=== PATIENT | female | born 1965 | race Caucasian/White ===

== ENCOUNTER 2017-08-12 16:20 | Emergency (ER) | payer OTHER ==
--- NOTE | 2017-08-12 17:35 | ER ---
Nurse's Notes [facility] Name: Linda Skelton Age: 52 yrs Sex: Female : 1965 Arrival Date: 08/12/2017 Time: 16:23 Bed 15 Private MD: Mark Fuller V Diagnosis: Attacked by rooster, puncture wound. Presentation: 08/12 16:35 Presenting complaint: Patient states: I went to my patients house and when I was la1 leaving his rooster attacked me and pecked my left ankle twice breaking the skin. Transition of care: patient was not received from another setting of care. Onset of symptoms was August 12, 2017. Initial Sepsis Screen: Does the patient meet any 2 criteria? No. Patient's initial sepsis screen is negative. Does the patient have a suspected source of infection? No. Patient initial sepsis screen negative. Care prior to arrival: None. 16:35 Method Of Arrival: Ambulatory la1 16:35 Acuity: CHITRA 4 la1 Historical: - Allergies: 16:36 No Known Allergies; la1 - PMHx: 16:36 Seizures; la1 - Immunization history:: Adult Immunizations up to date. - Social history:: Smoking status: Patient/guardian denies using tobacco. Screenin:59 Abuse screen: Denies threats or abuse. Denies injuries from another. Nutritional ph screening: No deficits noted. Tuberculosis screening: No symptoms or risk factors identified. Fall Risk None identified. Assessment: 16:53 General: Appears in no apparent distress. uncomfortable, well groomed, Behavior is ph calm, cooperative, appropriate for age, Reports states, " I was at a pt's house and their rooster attacked me.". Pain: Complains of pain in right ankle and medial aspect of right calf. Neuro: Level of Consciousness is awake, alert, obeys commands, Oriented to person, place, time, situation. Cardiovascular: Capillary refill < 3 seconds Patient's skin is warm and dry. Respiratory: Airway is patent Respiratory effort is even, unlabored, Respiratory pattern is regular, symmetrical. Derm: Skin is healthy with good turgor, Skin is pink, warm \\T\\ dry. Musculoskeletal: Circulation, motion, and sensation intact. Range of motion: intact in all extremities. Injury Description: Bite sustained to right ankle and medial aspect of right calf caused by rooster is superficial, from animal, small puncture noted to R outer ankle and R inner calve. 18:41 Reassessment: Patient appears in no apparent distress at this time. Patient and/or ph family updated on plan of care and expected duration. Pain level reassessed. Patient is alert, oriented x 3, equal unlabored respirations, skin warm/dry/pink. Pt discharged home with antibiotics. Vital Signs: 16:36 BP 124 / 70; Pulse 74; Resp 16; Temp 98.3; Pulse Ox 100% on R/A; Weight 99.34 kg; la1 Height 6 ft. 0 in. (182.88 cm); 17:45 BP 119 / 67; Pulse 72; Resp 18; Temp 97.9; Pulse Ox 99% on R/A; ph 16:36 Body Mass Index 29.70 (99.34 kg, 182.88 cm) la1 ED Course: 16:23 Patient arrived in ED. as 16:24 Mark Fuller MD is Private Physician. as 16:36 Triage completed. la1 16:36 Arm band placed on left wrist. la1 16:44 Nora Mcmillan, TYRESE is Primary Nurse. ph 16:46 Ok Chinchilla MD is Attending Physician. ps1 17:00 Patient has correct armband on for positive identification. Bed in low position. Call ph light in reach. Side rails up X 1. Pulse ox on. NIBP on. Warm blanket given. Pillow given. Ice pack to injury. 17:34 Mark Fuller MD is Referral Physician. ps1 18:38 No provider procedures requiring assistance completed. Patient did not have IV access ph during this emergency room visit. Wound care: to puncture located on medial aspect of right calf and right ankle was cleaned with Hibiclens, irrigated with normal saline, dressed with Neosporin, band aid, Patient tolerated well. 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 Exp: ph 11/29/2019. Lot #: [id number]. } Route: IM; Site: left deltoid; 18:38 Follow up: Response: No adverse reaction ph Outcome: 17:35 Discharge ordered by . ps1 18:42 Patient left the ED. ph 18:42 Discharged to home ambulatory. ph 18:42 Condition: good 18:42 Discharge instructions given to patient, Instructed on discharge instructions, follow up and referral plans. medication usage, Demonstrated understanding of instructions, follow-up care, medications, Prescriptions given X 1. Signatures: Melinda Solomon Lee RN RN la1 Nora Mcmillan RN RN ph Ok Chinchilla MD MD ps1
--- NOTE | 2017-08-12 17:35 | EDPHYS ---
Physician Documentation [facility] Name: Linda Skelton Age: 52 yrs Sex: Female : 1965 Arrival Date: 08/12/2017 Time: 16:23 Bed 15 Private MD: Mark Fuller V ED Physician Ok Chinchilla HPI: 08/12 17:25 This 52 yrs old Female presents to ER via Ambulatory with complaints of Ankle ps1 Injury, Leg Pain. 17:25 The patient presents with an injury. The complaints affect the right ankle. Onset: The ps1 symptoms/episode began/occurred just prior to arrival. 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 Describes the rooster about 2 and 1/2 feet tall and has a sharp beak. Unsure of the type of rooster but concerned because it pecks its beak in the dirt. She was running from the rooster and it pecked her twice in the leg in which she sustained 2 superficial puncture wounds. She is upset about the situation. 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 . Associated signs and symptoms: Pertinent negatives: fever, numbness, tingling. Historical: - Allergies: 16:36 No Known Allergies; la1 - PMHx: 16:36 Seizures; la1 - Immunization history:: Adult Immunizations up to date. - Social history:: Smoking status: Patient/guardian denies using tobacco. ROS: 17:25 Constitutional: Negative for fever, chills, and weight loss, Eyes: Negative for injury, ps1 pain, redness, and discharge, Cardiovascular: Negative for chest pain, palpitations, and edema, Respiratory: Negative for shortness of breath, cough, wheezing, and pleuritic chest pain, Abdomen/GI: Negative for abdominal pain, nausea, vomiting, diarrhea, and constipation. 17:25 Psych: Negative for depression, anxiety, suicide ideation, homicidal ideation, and hallucinations. 17:25 MS/extremity: Positive for puncture. Exam: 17:25 Constitutional: This is a well developed, well nourished patient who is awake, alert, ps1 and in no acute distress. Head/Face: Normocephalic, atraumatic. Chest/axilla: Normal chest wall appearance and motion. Nontender with no deformity. No lesions are appreciated. Cardiovascular: Regular rate and rhythm. No gallops, murmurs, or rubs. Normal PMI, no JVD. No pulse deficits. Respiratory: Lungs have equal breath sounds bilaterally, clear to auscultation and percussion. No rales, rhonchi or wheezes noted. No increased work of breathing, no retractions or nasal flaring. 17:25 Skin: Appearance: normal except for affected area, injury, puncture(s), that are superficial, of the right leg and medial aspect of right calf. Vital Signs: 16:36 BP 124 / 70; Pulse 74; Resp 16; Temp 98.3; Pulse Ox 100% on R/A; Weight 99.34 kg; la1 Height 6 ft. 0 in. (182.88 cm); 17:45 BP 119 / 67; Pulse 72; Resp 18; Temp 97.9; Pulse Ox 99% on R/A; ph 16:36 Body Mass Index 29.70 (99.34 kg, 182.88 cm) la1 MDM: 17:25 Data reviewed: vital signs, nurses notes. ED course: Patient became upset because the [facility] staff and myself found the story as described funny. I apologized and asked Dr. Padilla to see the patient to remain objective. POC: Update Tetanus. Home with Keflex prophylaxis. . 17:35 Patient medically screened. 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 Exp: ph 11/29/2019. Lot #: [id number]. } Route: IM; Site: left deltoid; 18:38 Follow up: Response: No adverse reaction ph Disposition: 08/12/17 17:35 Discharged to Home. Impression: Attacked by fernanda, puncture wound. . - Condition is Stable. - Discharge Instructions: Puncture Wound. - Prescriptions for Keflex 250 mg Oral Capsule - take 1 capsule by ORAL route every 8 hours for 5 days; 15 capsule. - Medication Reconciliation Form, Thank You Letter, Antibiotic Education, Prescription Opioid Use form. - Follow up: Mark Fuller MD; When: As needed; Reason: Recheck today's complaints, Continuance of care, Re-evaluation by your physician. Follow up: Emergency Department; When: As needed; Reason: Fever > 102 F, Worsening of condition. - Problem is new. - Symptoms are unchanged. Signatures: Morales Weathers, RN RN la1 Nora Mcmillan RN RN ph Ok Chinchilla MD MD ps1
[2017-08-12] MEDS ORDERED: TETANUS & DIPHTHERIA TOX,ADULT 0.5 ML VIAL ONE (18:17)
== END 2017-08-12 18:42 | disposition home or self-care (01) ==
LOC: ER 16:20
DX: S81.831A Puncture wound without foreign body, right lower leg, initial encounter (principal); W55.82XA Struck by other mammals, initial encounter; Y93.9 Activity, unspecified; Y92.89 Other specified places as the place of occurrence of the external cause; Y99.8 Other external cause status; Z23 Encounter for immunization
CPT/HCPCS: 90714; 99284

== ENCOUNTER 2017-12-26 09:55 | Emergency (ER) | payer OTHER ==
[2017-12-26] MEDS ORDERED: NA CHLORIDE 0.9% 500 ML ONE ×2 (10:07→10:15)
--- NOTE | 2017-12-26 10:41 | RAD REPORT ---
EXAM DESCRIPTION: CT - Head Brain Wo Cont - 12/26/2017 10:35 am CLINICAL HISTORY: SEIZURE Epilepsy COMPARISON: HEAD BRAIN W O CONTRAST dated 05/15/2015 TECHNIQUE: All CT scans are performed using dose optimization technique as appropriate and may inclu de automated exposure control or mA/KV adjustment according to patient size. FINDINGS: No intracranial hemorrhage, hydrocephalus or extra-axial fluid collection.Mild generalized brain atrophy is present with mild periventricular and deep white matter chronic microvascular ische darius changes.No areas of brain edema or evidence of midline shift. The paranasal sinuses and mastoids are clear. The calvarium is intact. IMPRESSION: No acute intracranial abnormality.
[2017-12-26 10:47] LABS: Absolute Lymphocytes (CBC) 1.6 K/uL (0.7-4.9); Absolute Monocytes 0.3 K/uL (0.1-1.3); Absolute Neutrophil 2.3 K/uL (1.8-8.0); BUN Blood Urea Nitrogen 11 mg/dL (7-18); Basophils % 0.5 % (0-1.3); Bicarbonate 26 mmol/L (21-32); CKMB Creatine Kinase MB < 1.0 ng/mL (0.3-3.6); Creatine Phosphokinase 81 U/L (26-192); Eosinophils % 0.7 % (0-4.4); Glucose Level 91 mg/dL (74-106); Lymphocytes % 37.8 % (15.3-44.8); MCH 33.2 pg (27.0-35.0); MCV 97.8 fL (80-100); MPV 8.4 fL (7.6-11.3); Magnesium 2.5 mg/dL (1.8-2.4); Monocytes % 6.3 % (3.3-12.3); Potassium 3.9 mmol/L (3.5-5.1); RBC Red Blood Cell Count 3.98 M/uL (3.86-4.86); Sodium Level 141 mmol/L (136-145)
--- NOTE | 2017-12-26 11:45 | RAD REPORT ---
EXAM DESCRIPTION: MRI - Brain Wo Cont - 12/26/2017 11:29 am CLINICAL HISTORY: headache, ataxia, seizure COMPARISON: No comparisons TECHNIQUE: Axial, sagittal, and coronal magnetic resonance images of the brain were obtained. Contra st was not requested FINDINGS: No significant abnormal signal is present within the brain. Hippocampal gyri are normal si ze and signal Diffusion-weighted/ADC mapping does not reveal evidence of acute infarction. The ventricles are normal caliber. An extra-axial fluid collection is not present The sinuses and mastoids are clear. IMPRESSION: No acute abnormality is displayed
--- NOTE | 2017-12-26 11:59 | ER ---
Nurse's Notes [facility] Name: Linda Skelton Age: 52 yrs Sex: Female : 1965 Arrival Date: 12/26/2017 Time: 09:59 Bed 2 Private MD: Diagnosis: Epilepsy and recurrent seizures Presentation: 12/26 09:53 Presenting complaint: EMS states: seizure noted by staff at her job, focal eye seizure sv is what was noted lasted about 7 minutes. No head injury or fall. Pt stated that she felt hot and knew a seizure was going to happen and layed down on the floor. Reports feeling "off balance and head not clear." Stated that she recently got her Topamax increased to 200 mg BID about 3 weeks ago. 09:54 Method Of Arrival: EMS: [facility] sv 09:54 Transition of care: patient was not received from another setting of care. Onset of sv symptoms was December 26, 2017. Risk Assessment: Do you want to hurt yourself or someone else? Patient reports no desire to harm self or others. Initial Sepsis Screen: Does the patient meet any 2 criteria? No. Patient's initial sepsis screen is negative. Does the patient have a suspected source of infection? No. Patient's initial sepsis screen is negative. Care prior to arrival: None. 09:54 Acuity: CHITRA 3 sv Triage Assessment: 10:00 General: Appears in no apparent distress. comfortable, well groomed, well developed, sv Behavior is calm, cooperative, appropriate for age. Pain: Denies pain. EENT: No signs and/or symptoms were reported regarding the EENT system. Neuro: Level of Consciousness is awake, alert, obeys commands, Oriented to person, place, time, situation, Moves all extremities. Full function Speech is normal, and slow. Facial symmetry appears normal, Reports "head not clear and feeling off balance.". Seizure activity reported prior to arrival. Type of seizure: focal seizure. Seizure lasted approximately 7 minutes. Respiratory: Respiratory effort is even, unlabored, Respiratory pattern is regular, symmetrical. Derm: Skin is normal. Musculoskeletal: Range of motion: intact in all extremities. Historical: - Allergies: 10:06 No Known Allergies; sv - Home Meds: 10:06 Lexapro 10 mg Oral tab 1 tab once daily [Active]; Topamax 200 mg Oral tab 1 tab 2 times sv per day [Active]; - PMHx: 10:06 Seizures; epilepsy; sv 10:19 Kidney stones; sv - PSHx: 10:19 Bladder suspension; Tonsillectomy; ; Adenoids; sv - Immunization history:: Adult Immunizations up to date. - Social history:: Smoking status: Patient/guardian denies using tobacco. - Family history:: not pertinent. - Ebola Screening: : No symptoms or risks identified at this time. - Hospitalizations: : No recent hospitalization is reported. Screenin:08 Abuse screen: Denies threats or abuse. Denies injuries from another. Nutritional sv screening: No deficits noted. Tuberculosis screening: No symptoms or risk factors identified. Fall Risk No fall in past 12 months (0 pts). Secondary diagnosis (15 points) seizures, IV access (20 points). Ambulatory Aid- None/Bed Rest/Nurse Assist (0 pts). Gait- Normal/Bed Rest/Wheelchair (0 pts) Mental Status- Oriented to own ability (0 pts). Total Roberts Fall Scale indicates Low Risk Score (25-44 pts). Fall prevention measures have been instituted. Side Rails Up X 2 Placed close to Nursing Station Frequent Obs/Assesments occuring Family Present and informed to notify staff if they need to leave bedside As available Patient and Family Educated on Fall Prevention Program and strategies. Assessment: 10:08 Reassessment: Patient appears in no apparent distress at this time. No changes from sv previously documented assessment. See triage assessment. 11:00 Reassessment: Patient appears in no apparent distress at this time. Patient and/or hb family updated on plan of care and expected duration. Pain level reassessed. Patient is alert, oriented x 3, equal unlabored respirations, skin warm/dry/pink. 12:07 Reassessment: Patient appears in no apparent distress at this time. No changes from sv previously documented assessment. Patient and/or family updated on plan of care and expected duration. Pain level reassessed. Patient is alert, oriented x 3, equal unlabored respirations, skin warm/dry/pink. Vital Signs: 10:06 BP 121 / 77; Pulse 59; Resp 16; Temp 98.6(O); Pulse Ox 100% ; Weight 95.71 kg; Height 6 sv ft. 0 in. (182.88 cm); Pain 0/10; 10:45 BP 106 / 80; Pulse 54; Resp 18; Pulse Ox 99% ; sv 11:00 BP 122 / 76; Pulse 58; Resp 15; Pulse Ox 100% on R/A; hb 11:59 BP 112 / 75; Pulse 58; Resp 16; Pulse Ox 100% ; sv 10:06 Body Mass Index 28.62 (95.71 kg, 182.88 cm) sv [place] Coma Score: 10:00 Eye Response: spontaneous(4). Verbal Response: oriented(5). Motor Response: obeys sv commands(6). Total: 15. ED Course: 09:59 Patient arrived in ED. rn 09:59 Rudy Wu MD is Attending Physician. rn 10:00 Sally Cassidy RN is Primary Nurse. sv 10:05 Triage completed. sv 10:06 Arm band placed on right wrist. sv 10:08 Patient has correct armband on for positive identification. Bed in low position. Side sv rails up X2. Adult w/ patient. Pulse ox on. NIBP on. Door closed. Head of bed elevated. 10:08 EKG done, by technologist development. reviewed by Rudy Wu MD. at1 10:09 Seizure precautions initiated. sv 10:16 Lights dimmed. sv 10:20 Inserted saline lock: 20 gauge in right antecubital area, using aseptic technique. sv ,using aseptic technique. done by Natacha XIONG Blood collected. 10:30 CT completed. Patient tolerated procedure well. Patient moved to CT via stretcher. sj Patient moved back from CT. 10:33 CT Head Brain wo Cont In Process Unspecified. EDMS 11:03 Patient moved to MRI via wheelchair. em2 11:22 Brain Wo Cont MRI In Process Unspecified. EDMS 11:36 MRI completed. Patient tolerated well. Patient moved back from MRI. em2 11:58 Montana Salazar MD is Referral Physician. rn 12:08 No provider procedures requiring assistance completed. IV discontinued, intact, sv bleeding controlled, No redness/swelling at site. Pressure dressing applied. Administered Medications: 10:17 Drug: NS 0.9% 500 ml Route: IV; Rate: bolus; Site: right antecubital; sv 10:45 Follow up: Response: No adverse reaction; IV Status: Completed infusion; IV Intake: sv 500ml Intake: 10:45 IV: 500ml; Total: 500ml. sv Outcome: 11:58 Discharge ordered by . rn 12:08 Discharged to home ambulatory, via wheelchair, with family. sv 12:08 Condition: stable 12:08 Discharge instructions given to patient, Instructed on discharge instructions, follow up and referral plans. Demonstrated understanding of instructions, follow-up care. 12:18 Patient left the ED. sv Signatures: Dispatcher [employer] Sally Stanley RN RN sv Jones, Susan sj Nieto, Roman, MD MD rn Montes, Enrique em2 Eliz Venegas, data manager EKG Tat1 Qing Marmolejo RN RN hb
--- NOTE | 2017-12-26 11:59 | EDPHYS ---
Physician Documentation [facility] Name: Linda Skelton Age: 52 yrs Sex: Female : 1965 Arrival Date: 12/26/2017 Time: 09:59 Bed 2 Private MD: ED Physician Rudy Wu HPI: 12/26 10:02 This 52 yrs old Female presents to ER via Unassigned with complaints of rn Seizure. 10:02 The patient presents after having a single isolated seizure, that lasted an unknown rn period of time. Seizure onset: just prior to arrival. Seizure Hx:. Current symptoms: fatigue and headache. The patient has experienced similar episodes in the past. The patient has not recently seen a physician. Reports at work, felt "aura", got hot, laid down on floor because this usually precedes a seizure, bystanders report focal eye movement, no generalized clonic activity, this is consistent with previous seizures for patient, takes topamax, has neurology appt tomorrow with Dr. Garcia because she feels her increased dose of topamax is not helping, has been feeling "off" lately with balance issues and focus issues.. Historical: - Allergies: 10:06 No Known Allergies; sv - Home Meds: 10:06 Lexapro 10 mg Oral tab 1 tab once daily [Active]; Topamax 200 mg Oral tab 1 tab 2 times sv per day [Active]; - PMHx: 10:06 Seizures; epilepsy; sv 10:19 Kidney stones; sv - PSHx: 10:19 Bladder suspension; Tonsillectomy; ; Adenoids; sv - Immunization history:: Adult Immunizations up to date. - Social history:: Smoking status: Patient/guardian denies using tobacco. - Family history:: not pertinent. - Ebola Screening: : No symptoms or risks identified at this time. - Hospitalizations: : No recent hospitalization is reported. ROS: 10:02 Constitutional: Negative for fever, chills, and weight loss, Eyes: Negative for injury, rn pain, redness, and discharge, Neck: Negative for injury, pain, and swelling, Cardiovascular: Negative for chest pain, palpitations, and edema, Respiratory: Negative for shortness of breath, cough, wheezing, and pleuritic chest pain, Abdomen/GI: Negative for abdominal pain, vomiting, diarrhea, and constipation, MS/Extremity: Negative for injury and deformity, Skin: Negative for injury, rash, and discoloration, Neuro: Negative for numbness, tingling Exam: 10:02 Constitutional: This is a well developed, well nourished patient who is awake, rn somnolent, but aware. Head/Face: Normocephalic, atraumatic. Eyes: Pupils equal round and reactive to light, extra-ocular motions intact. Lids and lashes normal. Conjunctiva and sclera are non-icteric and not injected. Cornea within normal limits. Periorbital areas with no swelling, redness, or edema. Cardiovascular: Regular rate and rhythm with a normal S1 and S2. No pulse deficits. Respiratory: Lungs have equal breath sounds bilaterally, No increased work of breathing, no retractions or nasal flaring. Abdomen/GI: soft, non-tender Skin: Warm, dry with normal turgor. Normal color with no rashes, no lesions, and no evidence of cellulitis. MS/ Extremity: Pulses equal, no cyanosis. Neurovascular intact. Full, normal range of motion. Equal circumference. Neuro: Awake and alert, GCS 15, oriented to person, place, time, and situation. Cranial nerves II-XII grossly intact. Motor strength 5/5 in all extremities. Sensory grossly intact. Cerebellar exam normal. 11:58 ECG was reviewed by the Attending Physician. rn Vital Signs: 10:06 BP 121 / 77; Pulse 59; Resp 16; Temp 98.6(O); Pulse Ox 100% ; Weight 95.71 kg; Height 6 sv ft. 0 in. (182.88 cm); Pain 0/10; 10:45 BP 106 / 80; Pulse 54; Resp 18; Pulse Ox 99% ; sv 11:00 BP 122 / 76; Pulse 58; Resp 15; Pulse Ox 100% on R/A; hb 11:59 BP 112 / 75; Pulse 58; Resp 16; Pulse Ox 100% ; sv 10:06 Body Mass Index 28.62 (95.71 kg, 182.88 cm) sv [place] Coma Score: 10:00 Eye Response: spontaneous(4). Verbal Response: oriented(5). Motor Response: obeys sv commands(6). Total: 15. MDM: 10:00 Patient medically screened. rn 11:57 Differential diagnosis: cerebral vascular accident, cardiac arrhythmia, seizure, TIA. rn Data reviewed: vital signs, nurses notes, lab test result(s), EKG, radiologic studies, CT scan, MRI, and as a result, I will discharge patient. Counseling: I had a detailed discussion with the patient and/or guardian regarding: the historical points, exam findings, and any diagnostic results supporting the discharge/admit diagnosis, lab results, radiology results, the need for outpatient follow up, to return to the emergency department if symptoms worsen or persist or if there are any questions or concerns that arise at home. Response to treatment: the patient's condition has returned to base line, and as a result, I will discharge patient. Special discussion: I discussed with the patient/guardian in detail that at this point there is no indication for admission to the hospital. It is understood, however, that if the symptoms persist or worsen the patient needs to return immediately for re-evaluation. Based on the history and exam findings, there is no indication for further emergent testing or inpatient evaluation. I discussed with the patient/guardian the need to see the neurologist for further evaluation of the symptoms. ED course: Has neuro appt tomorrow, neg w/u here, at baseline, normal neuro exam, will dc with f/u tomorrow, anticipate medication change/addition given long time on topamax and increased symptoms/seizures.. 12/26 10: Order name: Basic Metabolic Panel; Complete Time: 12/26 10: Order name: CBC with Diff; Complete Time: 12/26 10: Order name: Ckmb; Complete Time: 12/26 10: Order name: CPK; Complete Time: 12/26 10:01 Order name: Magnesium; Complete Time: 12/26 10:01 Order name: CT Head Brain wo Cont; Complete Time: 12/26 10:01 Order name: Troponin (emerg Dept Use Only); Complete Time: 12/26 10:01 Order name: EKG; Complete Time: 12/26 10:01 Order name: TSH; Complete Time: 12/26 10:01 Order name: T4 Free; Complete Time: 12/26 10: Order name: [place] Screen Profile; Complete Time: 12/26 10:42 Order name: Brain Wo Cont MRI; Complete Time: 11:49 rn 12/26 10:01 Order name: Cardiac monitoring; Complete Time: : rn 12/26 10:01 Order name: EKG - Nurse/Tech; Complete Time: 10: rn 12/26 10:01 Order name: IV Saline Lock; Complete Time: : rn 12/26 10:01 Order name: Labs collected and sent; Complete Time: rn 12/26 10:01 Order name: O2 Per Protocol; Complete Time: 10: rn 12/26 10:01 Order name: O2 Sat Monitoring; Complete Time: 10: rn EC:58 Rate is 56 beats/min. Rhythm is regular. QRS [place] is Normal. CO interval is normal. QRS rn interval is normal. QT interval is normal. No Q waves. T waves are Normal. No ST changes noted. Clinical impression: Sinus bradycardia. Interpreted by me. Administered Medications: : Drug: NS 0.9% 500 ml Route: IV; Rate: bolus; Site: right antecubital; sv 10:45 Follow up: Response: No adverse reaction; IV Status: Completed infusion; IV Intake: sv 500ml Disposition: 12/26/17 11:58 Discharged to Home. Impression: Epilepsy and recurrent seizures. - Condition is Stable. - Discharge Instructions: Seizure, Adult. - Medication Reconciliation Form, Thank You Letter, Antibiotic Education, Prescription Opioid Use form. - Follow up: Montana Salazar MD; When: Tomorrow; Reason: Recheck today's complaints, Continuance of care, Re-evaluation by your physician. - Problem is new. - Symptoms have improved. Signatures: Dispatcher [employer] Sally Stanley RN RN Rudy Robertson MD MD laborer car barn: (The following items were deleted from the chart) 12:18 11:58 12/26/2017 11:58 Discharged to Home. Impression: Epilepsy and recurrent seizures. sv Condition is Stable. Forms are Medication Reconciliation Form, Thank You Letter, Antibiotic Education, Prescription Opioid Use. Follow up: Montana Salazar; When: Tomorrow; Reason: Recheck today's complaints, Continuance of care, Re-evaluation by your physician. Problem is new. Symptoms have improved. rn
--- NOTE | 2017-12-26 16:28 | EKG ---
Test Date: 2017-12-26 Test Time: 10:02:08 Radiation Protection Engineer: NIEVES MEASUREMENT RESULTS: Intervals: Rate: 56 OR: 148 QRSD: 90 QT: 438 QTc: 422 [place]: P: 44 OR: 148 QRS: 25 T: 38 INTERPRETIVE STATEMENTS: Sinus bradycardia Otherwise normal ECG Compared to ECG 05/15/2015 16:36:13 Sinus rhythm no longer present Electronically Signed On 12-26-17 16:26:08 CDT by Cristóbal Ritter
== END 2017-12-26 12:18 | disposition home or self-care (01) ==
LOC: ER 09:55
DX: G40.802 Other epilepsy, not intractable, without status epilepticus (principal)
CPT/HCPCS: 36415; 70450; 70551; 80048; 82550; 82553; 83735; 84439; 84443; 84484; 85025; 86308; 93005; 99285

== ENCOUNTER 2019-01-05 17:14 | Emergency (ER) | payer OTHER ==
--- OUTSIDE RECORDS SUMMARY | 2019-01-05 17:16 | XMS REPORT | Summary of Care ---
:1965 Author Organization [facility] - Health Address [address] [place] [address] Care Team Providers Name Role Phone Mark Fuller Primary Care Provider Encounter Details Date Type Department Care Team Description 12/24/2018 Orders Only [facility] Doctor Unassigned, No [address] [facility] [place] [address] [address] [place] [address] Allergies No Known Allergiesdocumented as of this encounter (statuses as of 12/24/2018) Medications Medication Sig Dispensed Refills Start Date End Date Status AMOXICILLIN/POTASSIUM Take by mouth. 0 Active CLAV (AUGMENTIN ORAL) phenytoin Extended Take 3 capsules 90 capsule 3 06/17/2018 Active (DILANTIN) 100 mg by mouth daily. capsule topiramate (TROKENDI Take 200 mg by 30 capsule 2 07/25/2018 Active XR) 200 mg mouth daily. [id number]: Partial symptomatic epilepsy with complex partial seizures, not intractable, without status epilepticus escitalopram oxalate Take 1 tablet by 30 tablet 6 09/17/2018 Active 10 mg tablet mouth daily. phenytoin Extended Take 2 every 24 60 capsule 6 10/06/2018 Active (DILANTIN) 30 mg hours. capsuleIndications: Partial symptomatic epilepsy with complex partial seizures, not intractable, without status epilepticus documented as of this encounter (statuses as of 12/24/2018) Active Problems Not on filedocumented as of this encounter (statuses as of 12/24/2018) Social History Tobacco Use Types Packs/Day Years Used Date Former Smoker Smokeless Tobacco: Never Used Alcohol Use Drinks/Week oz/Week Comments Yes 0 Standard drinks or equivalent 0.0 occ. Sex Assigned at Date Recorded Not on file Job Start Date Occupation Industry Not on file Not on file Not on file Travel History Travel Start Travel End No recent travel history available. documented as of this encounter Last Filed Vital Signs Not on filedocumented in this encounter Plan of Treatment Health Maintenance Due Date Last Done Comments HEPATITIS C (HCV) SCREEN 1965 DTaP,Tdap,and Td Vaccines (1 - 07/23/1983 Tdap) PAP SMEAR 1985 MAMMOGRAM 2004 COLONOSCOPY 2014 Zoster Recombinant Vaccine 2014 (SHINGRIX) (1 of 2) INFLUENZA VACCINE (#1) 2018 PNEUMOCOCCAL 0-64 YEARS COMBINED Aged Out No longer eligible based on SERIES patient's age to complete this topic documented as of this encounter Procedures Procedure Name Priority Date/Time Associated Diagnosis Comments EXTERNAL PROVIDER Routine 12/24/2018 12:01 AM CDT RECORDS documented in this encounter Results Not on filedocumented in this encounter Insurance Payer Benefit Plan / Group Subscriber ID Effective Dates Phone Address Type ANIVAL FLORIAN II [id number] 2015-Present HMO/PPO/POS documented as of this encounter
--- OUTSIDE RECORDS SUMMARY | 2019-01-05 17:16 | XMS REPORT ---
:1965 [facility] Address [address] [place] [address] [address] [place] [address] Care Team Providers Name Role Phone Unavailable Unavailable Unavailable Problems This patient has no known problems. Allergies, Adverse Reactions, Alerts This patient has no known allergies or adverse reactions. Medications This patient has no known medications.
[2019-01-05] MEDS ORDERED: DIAZEPAM 10 MG/2 ML INJ SYRINGE ONE (18:12)
[2019-01-05] MEDS ORDERED: ONDANSETRON 4 MG/2 ML VIAL ONE (18:12)
[2019-01-05] MEDS ORDERED: NA CHLORIDE 0.9% 500 ML ONE (18:12)
[2019-01-05] MEDS ORDERED: MECLIZINE HCL 12.5 MG TAB ONE (18:12)
[2019-01-05 18:43] LABS: Absolute Lymphocytes (CBC) 1.6 K/uL (0.7-4.9); Basophils % 0.4 % (0-1.3); Hematocrit 36.5 % (36.0-45.0); Lymphocytes % 40.9 % (15.3-44.8); MPV 7.3 fL (7.6-11.3); RBC Red Blood Cell Count 3.64 M/uL (3.86-4.86)
[2019-01-05 18:45] LABS: Potassium 4.3 mmol/L (3.5-5.1)
--- NOTE | 2019-01-05 18:48 | RAD REPORT ---
EXAM DESCRIPTION: CT - Head Brain Wo Cont - 01/05/2019 6:29 pm CLINICAL HISTORY: patient c/p Dizziness, nausea, headache. Hx- Seizures. COMPARISON: CT; Head Brain Wo Cont 12/26/2017; . TECHNIQUE: Axial 5 mm thick images of the head were obtained without IV contrast. All CT scans are performed using dose optimization technique as appropriate and may include automated exposure control or mA/KV adjustment according to patient size. FINDINGS: No intracranial hemorrhage, mass, edema or shift of mid-line structures. No acute infarcti on changes seen. No abnormal extra-axial fluid collections. Ventricles are normal. Mastoid air cells and visualized portions of the paranasal sinuses are clear. No acute bony findings. No significant change from comparison. IMPRESSION: Negative non-contrast CT head examination.
--- NOTE | 2019-01-05 21:14 | ER ---
Nurse's Notes [facility] Name: Linda Skelton Age: 53 yrs Sex: Female : 1965 Arrival Date: 01/05/2019 Time: 17:18 Bed 24 Private MD: Mark Fuller V Diagnosis: Other peripheral vertigo, bilateral;Dizziness and giddiness Presentation: 01/05 17:30 Presenting complaint: Patient states: "the room is spinning every time I open my eyes aa5 and I feel very nauseated". Pt also c/o headache. Pt denies vomiting. Transition of care: patient was not received from another setting of care. Onset of symptoms was January 05, 2019. Risk Assessment: Do you want to hurt yourself or someone else? Patient reports no desire to harm self or others. Initial Sepsis Screen: Does the patient meet any 2 criteria? No. Patient's initial sepsis screen is negative. Does the patient have a suspected source of infection? No. Patient's initial sepsis screen is negative. Care prior to arrival: None. 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 - Social history:: Smoking status: Patient/guardian denies using tobacco. - Ebola Screening: : No symptoms or risks identified at this time. Screenin:40 Abuse screen: Denies threats or abuse. Denies injuries from another. Nutritional ca1 screening: No deficits noted. Tuberculosis screening: No symptoms or risk factors identified. Fall Risk IV access (20 points). Assessment: 17:40 General: Appears in no apparent distress. comfortable, Behavior is calm, cooperative, ca1 appropriate for age. Pain: Complains of pain in face and scalp Pain currently is 2 out of 10 on a pain scale. Quality of pain is described as pulsating, Is intermittent. Neuro: Level of Consciousness is awake, alert, obeys commands, Oriented to person, place, time, situation, Reports dizziness, photophobia. Cardiovascular: Heart tones S1 S2 present Capillary refill < 3 seconds Patient's skin is warm and dry. Respiratory: Airway is patent Respiratory effort is even, unlabored, Respiratory pattern is regular, symmetrical, Breath sounds are clear bilaterally. GI: Abdomen is flat, non-distended, Bowel sounds present X 4 quads. Abd is soft and non tender X 4 quads. Reports nausea. : No deficits noted. No signs and/or symptoms were reported regarding the genitourinary system. EENT: No deficits noted. No signs and/or symptoms were reported regarding the EENT system. Derm: Skin is intact, is healthy with good turgor, Skin is pink, warm \\T\\ dry. Musculoskeletal: Circulation, motion, and sensation intact. Capillary refill < 3 seconds, Range of motion: intact in all extremities. 18:20 Reassessment: Patient appears in no apparent distress at this time. Patient and/or ca1 family updated on plan of care and expected duration. Pain level reassessed. Patient is alert, oriented x 3, equal unlabored respirations, skin warm/dry/pink. 19:28 Reassessment: Patient appears in no apparent distress at this time. Patient and/or ca1 family updated on plan of care and expected duration. Pain level reassessed. Patient is alert, oriented x 3, equal unlabored respirations, skin warm/dry/pink. 20:14 Reassessment: Patient appears in no apparent distress at this time. Patient is alert, ca1 oriented x 3, equal unlabored respirations, skin warm/dry/pink. Pt ambulated outside room without support with slow steady gait. Pt reports feeling better, marked decrease of dizziness. 21:16 Reassessment: Patient appears in no apparent distress at this time. Patient is alert, ca1 oriented x 3, equal unlabored respirations, skin warm/dry/pink. Patient states feeling better. Vital Signs: 17:32 BP 122 / 74; Pulse 73; Resp 16 S; Temp 97.9(TE); Pulse Ox 98% on R/A; Weight 102.97 kg aa5 (R); Height 6 ft. 0 in. (182.88 cm) (R); Pain 2/10; 18:26 BP 121 / 79; Pulse 67; Resp 17 S; Pulse Ox 99% on R/A; ca1 19:28 BP 101 / 68; Pulse 59; Resp 17 S; Pulse Ox 100% on R/A; ca1 20:14 BP 121 / 85; Pulse 60; Resp 14 S; Pulse Ox 100% on R/A; ca1 21:16 BP 116 / 79; Pulse 64; Resp 16 S; Pulse Ox 100% on R/A; ca1 17:32 Body Mass Index 30.79 (102.97 kg, 182.88 cm) aa5 Visual Acuity: 20:06 Left Eye Visual acuity 20/20, ; Right Eye Visual acuity 20/20, ; Both Eyes Visual ca1 acuity 20/15; Without Lenses; ED Course: 17:18 Patient arrived in ED. mr 17:18 Mark Fuller MD is Private Physician. mr 17:30 Arm band placed on. aa5 17:31 Triage completed. aa5 17:37 Ronald Rodriguez MD is Attending Physician. kdr 17:40 Patient has correct armband on for positive identification. Placed in gown. Bed in low ca1 position. Call light in reach. Side rails up X2. manager monitoring on. Pulse ox on. NIBP on. Door closed. Noise minimized. Lights dimmed. Warm blanket given. 17:40 No provider procedures requiring assistance completed. ca1 17:45 Cherelle Avila, TYRESE is Primary Nurse. ca1 18:18 Inserted saline lock: 20 gauge in right antecubital area, using aseptic technique. ca1 Blood collected. 18:29 CT completed. Patient tolerated procedure well. Patient moved to CT. Patient moved back ak from CT. 18:29 CT Head Brain wo Cont In Process Unspecified. EDMS 21:13 Mark Fuller MD is Referral Physician. kdr 21:27 IV discontinued, intact, bleeding controlled, No redness/swelling at site. Pressure ca1 dressing applied. Administered Medications: 18:00 Drug: Zofran 4 mg Route: IVP; Site: right antecubital; ca1 19:30 Follow up: Response: No adverse reaction; Marked relief of symptoms; Nausea is decreasedca1 18:20 Drug: NS 0.9% 500 ml Route: IV; Rate: bolus; Site: right antecubital; ca1 19:30 Follow up: Response: No adverse reaction; IV Status: Completed infusion; IV Intake: ca1 500ml 18:22 Drug: Valium 5 mg Route: IVP; Site: right antecubital; ca1 19:30 Follow up: Response: No adverse reaction; Marked relief of symptoms; RASS: Alert and ca1 Calm (0) 18:24 Drug: Meclizine 25 mg Route: PO; ca1 19:31 Follow up: Response: No adverse reaction; Marked relief of symptoms ca1 Intake: 19:30 IV: 500ml; Total: 500ml. ca1 Outcome: 21:13 Discharge ordered by . kdr 21:27 Discharged to home via wheelchair, with significant other. ca1 21: Condition: stable 21:27 Discharge instructions given to patient, Instructed on discharge instructions, follow up and referral plans. medication usage, Demonstrated understanding of instructions, follow-up care, medications, Prescriptions given X 1. 21:27 Patient left the ED. ca1 Signatures: Dispatcher [employer] EDMS Ronald Rodriguez MD MD kdr Rivera, Trisha mr García, Antonietta, RN RN aa5 Marcello Villalobos Cheryl RN RN ca1 Corrections: (The following items were deleted from the chart) 18:26 18:26 Reassessment: Patient appears in no apparent distress at this time. Patient ca1 and/or family updated on plan of care and expected duration. Pain level reassessed. Patient is alert, oriented x 3, equal unlabored respirations, skin warm/dry/pink. ca1
--- NOTE | 2019-01-05 21:14 | EDPHYS ---
Physician Documentation [facility] Name: Linda Skelton Age: 53 yrs Sex: Female : 1965 Arrival Date: 01/05/2019 Time: 17:18 Bed 24 Private MD: Mark Fuller V ED Physician Ronald Rodriguez HPI: 01/05 21:51 This 53 yrs old Female presents to ER via Wheelchair with complaints of kdr Dizziness. 21:51 The patient presents with dizziness, feeling off balance, sense of spinning, vertigo. kdr Onset: The symptoms/episode began/occurred today. Context: occurred at home. Modifying factors: The symptoms are alleviated by closing eyes, holding head still, lying down, the symptoms are aggravated by movement of head, standing up, changing position. Associated signs and symptoms: Pertinent positives: nausea, vomiting, The patient states that she has been sleepy all day and then this afternoon, she had acute onset of dizziness. She feels totally incapacitated by her dizziness.. Severity of symptoms: At their worst the symptoms were incapacitating in the emergency department the symptoms are unchanged. Patient's baseline: Neuro: alert and fully oriented, Motor: no deficits, Ambulation: walks without assistance, Speech: normal. The patient has not experienced similar symptoms in the past. The patient has not recently seen a physician. 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 - Social history:: Smoking status: Patient/guardian denies using tobacco. - Ebola Screening: : No symptoms or risks identified at this time. ROS: 21:51 Constitutional: Negative for fever, chills, and weight loss, Eyes: Negative for injury, kdr pain, redness, and discharge, ENT: Negative for injury, pain, and discharge, Neck: Negative for injury, pain, and swelling, Cardiovascular: Negative for chest pain, palpitations, and edema, Respiratory: Negative for shortness of breath, cough, wheezing, and pleuritic chest pain, Abdomen/GI: Negative for abdominal pain, nausea, vomiting, diarrhea, and constipation, Back: Negative for injury and pain, : Negative for injury, bleeding, discharge, and swelling, MS/Extremity: Negative for injury and deformity, Skin: Negative for injury, rash, and discoloration, Psych: Negative for depression, anxiety, suicide ideation, homicidal ideation, and hallucinations, Allergy/Immunology: Negative for hives, rash, and allergies, Endocrine: Negative for neck swelling, polydipsia, polyuria, polyphagia, and marked weight changes, Hematologic/Lymphatic: Negative for swollen nodes, abnormal bleeding, and unusual bruising. 21:51 Neuro: Positive for dizziness, headache, Negative for altered mental status, tinnitus, tremor. Exam: 21:51 Constitutional: This is a well developed, well nourished patient who is awake, alert, kdr and in no acute distress. Head/Face: Normocephalic, atraumatic. Eyes: Pupils equal round and reactive to light, extra-ocular motions intact. Lids and lashes normal. Conjunctiva and sclera are non-icteric and not injected. Cornea within normal limits. Periorbital areas with no swelling, redness, or edema. Neck: Trachea midline, no thyromegaly or masses palpated, and no cervical lymphadenopathy. Supple, full range of motion without nuchal rigidity, or vertebral point tenderness. No Meningismus. Chest/axilla: Normal chest wall appearance and motion. Nontender with no deformity. No lesions are appreciated. Cardiovascular: Regular rate and rhythm with a normal S1 and S2. No gallops, murmurs, or rubs. Normal PMI, no JVD. No pulse deficits. Respiratory: Lungs have equal breath sounds bilaterally, clear to auscultation and percussion. No rales, rhonchi or wheezes noted. No increased work of breathing, no retractions or nasal flaring. Abdomen/GI: Soft, non-tender, with normal bowel sounds. No distension or tympany. No guarding or rebound. No evidence of tenderness throughout. Back: No spinal tenderness. No costovertebral tenderness. Full range of motion. Skin: Warm, dry with normal turgor. Normal color with no rashes, no lesions, and no evidence of cellulitis. MS/ Extremity: Pulses equal, no cyanosis. Neurovascular intact. Full, normal range of motion. Psych: Awake, alert, with orientation to person, place and time. Behavior, mood, and affect are within normal limits. 21:51 Neuro: Orientation: is normal, Mentation: is normal, Cerebellar function: Motor: is normal, Gait: unable to assess, Too dizzy, HINTS: Repeated several times along with the patients stay including prior to discharge - all tests were negative. Vital Signs: 17:32 BP 122 / 74; Pulse 73; Resp 16 S; Temp 97.9(TE); Pulse Ox 98% on R/A; Weight 102.97 kg aa5 (R); Height 6 ft. 0 in. (182.88 cm) (R); Pain 2/10; 18:26 BP 121 / 79; Pulse 67; Resp 17 S; Pulse Ox 99% on R/A; ca1 19:28 BP 101 / 68; Pulse 59; Resp 17 S; Pulse Ox 100% on R/A; ca1 20:14 BP 121 / 85; Pulse 60; Resp 14 S; Pulse Ox 100% on R/A; ca1 21:16 BP 116 / 79; Pulse 64; Resp 16 S; Pulse Ox 100% on R/A; ca1 17:32 Body Mass Index 30.79 (102.97 kg, 182.88 cm) aa5 Visual Acuity: 20:06 Left Eye Visual acuity 20/20, ; Right Eye Visual acuity 20/20, ; Both Eyes Visual ca1 acuity 20/15; Without Lenses; MDM: 19:11 Data reviewed: vital signs. ED course: The patient is feeling better 5/10. kdr 21:13 Patient medically screened. kdr 01/05 18:00 Order name: CBC with Diff; Complete Time: 19:05 kdr 01/05 18:00 Order name: Chem 7; Complete Time: 19:05 kdr 01/05 18:00 Order name: CT Head Brain wo Cont; Complete Time: 19: kdr 01/05 18:06 Order name: Dilantin; Complete Time: 19:05 kdr Administered Medications: 18:00 Drug: Zofran 4 mg Route: IVP; Site: right antecubital; ca1 19:30 Follow up: Response: No adverse reaction; Marked relief of symptoms; Nausea is decreasedca1 18:20 Drug: NS 0.9% 500 ml Route: IV; Rate: bolus; Site: right antecubital; ca1 19:30 Follow up: Response: No adverse reaction; IV Status: Completed infusion; IV Intake: ca1 500ml 18:22 Drug: Valium 5 mg Route: IVP; Site: right antecubital; ca1 19:30 Follow up: Response: No adverse reaction; Marked relief of symptoms; RASS: Alert and ca1 Calm (0) 18:24 Drug: Meclizine 25 mg Route: PO; ca1 19:31 Follow up: Response: No adverse reaction; Marked relief of symptoms ca1 Disposition: 01/05/19 21:13 Discharged to Home. Impression: Other peripheral vertigo, bilateral, Dizziness and giddiness. - Condition is Stable. - Discharge Instructions: Vertigo, [id number], Dizziness, [id number]. - Prescriptions for Meclizine 25 mg Oral Tablet - take 1 tablet by ORAL route every 8 hours As needed; 30 tablet. - Medication Reconciliation Form, Thank You Letter form. - Follow up: Mark Fuller MD; When: 2 - 3 days; Reason: If symptoms return, Further diagnostic work-up, Recheck today's complaints, Continuance of care, Re-evaluation by your physician. - Problem is new. - Symptoms have improved. 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 Impression: Other peripheral vertigo, ca1 bilateral; Dizziness and giddiness. Condition is Stable. Forms are Medication Reconciliation Form, Thank You Letter, Antibiotic Education, Prescription Opioid Use. Follow up: Mark Fuller; When: 2 - 3 days; Reason: If symptoms return, Further diagnostic work-up, Recheck today's complaints, Continuance of care, Re-evaluation by your physician. Problem is new. Symptoms have improved. kdr
[2019-01-06 01:01] VITALS: BP 162/70; TEMP 98; O2SAT 98
== END 2019-01-05 21:27 | disposition home or self-care (01) ==
LOC: ER 17:14
DX: H81.393 Other peripheral vertigo, bilateral (principal)
CPT/HCPCS: 85025; 80048; 36415; 80185; 70450; J3360; J2405; 96361; 96374; 96375; 99285